=== PATIENT | female | born 1965 | race African-American/Black ===

== ENCOUNTER 2022-06-21 14:07 | Outpatient (CLI) | payer BC | END 2022-06-21 14:08 | disposition home or self-care (01) | LOC: SCSRAD 14:07 | PROVIDERS: ATTEND Internal Medicine Rheumatology | DX: M25.541 Pain in joints of right hand (principal); M25.542 Pain in joints of left hand; E55.9 Vitamin D deficiency, unspecified; M15.1 Heberden's nodes (with arthropathy); M19.042 Primary osteoarthritis, left hand ==